=== PATIENT | female | born 1990 | race Two or more races ===

== ENCOUNTER 2019-10-08 14:58 | Outpatient (CLI) | payer BC, SELFPAY ==
[2019-10-08 16:28] LABS: Thyroid Stimulating Hormone 0.345 uIU/mL (0.465-4.680)
[2019-10-08 16:31] LABS: Hemoglobin A1C 5.3 % (<5.7)
[2019-10-11 07:01] LABS: Insulin Level Total 7.4 uIU/mL (<=19.6)
[2019-10-11 13:06] LABS: DHEA-Sulfate 256 mcg/dL (18-391)
[2019-10-11 19:37] LABS: Prolactin 9.1 ng/mL (***); Triiodothyronine T3 Free 3.1 pg/mL (2.3-4.2)
[2019-10-14 10:16] LABS: Testosterone Total 62 ng/dL (2-45)
== END 2019-10-08 14:59 | disposition home or self-care (01) ==
PROVIDERS: Visit Provider Obstetrics & Gynecology
DX: N97.9 Female infertility, unspecified (principal)
CPT/HCPCS: 36415; 82627; 83036; 83498; 83525; 84146; 84403; 84439; 84443; 84481

== ENCOUNTER 2019-11-07 09:41 | Outpatient (CLI) | payer BC, SELFPAY | END 2019-11-07 09:42 | disposition home or self-care (01) | LOC: ANHLAB 09:44 | PROVIDERS: Visit Provider Obstetrics & Gynecology | DX: N97.9 Female infertility, unspecified (principal) | CPT/HCPCS: 36415; 84144 ==

== ENCOUNTER 2019-12-14 14:50 | Outpatient (CLI) | payer BC, SELFPAY ==
[2019-12-14 16:12] LABS: Free T4 Free Thyroxine 0.82 ng/mL (0.78-2.19); Vitamin D 25 Hydroxy 21.2 ng/mL
== END 2019-12-14 14:51 | disposition home or self-care (01) ==
PROVIDERS: Visit Provider Obstetrics & Gynecology
DX: E55.9 Vitamin D deficiency, unspecified (principal); E28.2 Polycystic ovarian syndrome
CPT/HCPCS: 36415; 82306; 84439; 84443